=== PATIENT | male | born 1955 | race Caucasian/White ===

== ENCOUNTER 2019-10-29 09:32 | Emergency (ER) | payer MEDICAID ==
[~2019-10-29] VITALS: Ht 181.6 cm; Wt 63.5 kg
[2019-10-29 10:02] VITALS: BP_SYST 113
[2019-10-29] MEDS ORDERED: KETOROLAC TROMETHAMINE 60 MG/2 ML VIAL IM ONE (10:45)
[2019-10-29] MEDS ORDERED: fentaNYL CITRATE/PF 100 MCG/2 ML AMP IM ONE (10:45)
[2019-10-29] MEDS ORDERED: ONDANSETRON 4 MG ODT TAB PO ONE (10:45)
[2019-10-29 11:36] VITALS: BP_SYST 113
== END 2019-10-29 11:36 | disposition home or self-care (01) ==
LOC: SED 09:32
DX: G89.29 Other chronic pain (principal); M25.562 Pain in left knee; F17.210 Nicotine dependence, cigarettes, uncomplicated
CPT/HCPCS: 99283